=== PATIENT | male | born 2000 | race Caucasian/White ===

== ENCOUNTER 2022-08-22 16:00 | Emergency (ER) | payer BC ==
[~2022-08-22] VITALS: Ht 188 cm; Wt 81.6 kg
[2022-08-22 16:39] VITALS: BP 154/94
[2022-08-22] MEDS ORDERED: IBUP-2213 PO (17:25)
--- NOTE | 2022-08-22 18:29 | NUR ---
Patient discharged with v/s stable. Written and verbal after care instructions FOR METARTARSAL FRACTURE given and explained. Patient alert, oriented and verbalized understanding of instructions. Ambulatory USING CRUTCHES. All questions addressed prior to discharge. ID band removed. Patient advised to follow up with PMD. Rx of IBUPROFEN given. Opportunity to ask questions provided and answered.
== END 2022-08-22 18:29 | disposition home or self-care (01) ==
LOC: MED 16:00
DX: S92.354A Nondisplaced fracture of fifth metatarsal bone, right foot, initial encounter for closed fracture (principal); Z79.899 Other long term (current) drug therapy; X58.XXXA Exposure to other specified factors, initial encounter; Y93.61 Activity, american tackle football; Y92.89 Other specified places as the place of occurrence of the external cause; Y99.8 Other external cause status
CPT/HCPCS: 29515; 73630; 99283